=== PATIENT | female | born 1950 | race Caucasian/White ===

== ENCOUNTER → 2018-03-05 | Outpatient (CLI) | payer MEDICARE, OTHER ==
[~2018-03-05] MED LIST: NITR-105 PO
[2018-03-05 09:33] LABS: PLATELET COUNT, AUTOMATED 290 K/uL (150-450)
[2018-03-05 09:49] LABS: LDL CHOLESTEROL 87 mg/dl
== END ==
LOC: LAB 09:07
PROVIDERS: ATTEND Obstetrics & Gynecology
DX: Z00.00 Encounter for general adult medical examination without abnormal findings (principal)
CPT/HCPCS: 36415; 82040; 82247; 82310; 82374; 82435; 82465; 82565; 82947; 83718; 84075; 84132; 84155; 84295; 84443; 84450; 84460; 84478; 84520; 85025

== ENCOUNTER → 2018-03-22 | Outpatient (CLI) | payer MEDICARE, OTHER ==
[~2018-03-22] MED LIST changes: +BEV100I IV; +ESTR42.59 VG; +HYDR12.556 PO
--- NOTE | 2018-03-22 08:43 | EKG ---
FACILITY: [facility] - [place] PATIENT NAME: EPHRAIM DE GUZMAN : [id number] MR: [id number] V: [id number] EXAM DATE: ORDERING PHYSICIAN: NELY HORTON TECHNOLOGIST: ELLYN Test Reason : PREOP-EYE LIDS Blood Pressure : / mmHG Vent. Rate : 059 BPM Atrial Rate : 059 BPM P-R Int : 144 ms QRS Dur : 096 ms QT Int : 446 ms P-R-T Axes : 021 -14 000 degrees QTc Int : 441 ms Sinus bradycardia Incomplete right bundle branch block Nonspecific T wave abnormality Abnormal ECG When compared with ECG of 05-JAN-2016 13:21, No significant change was found Confirmed by WILFRED HERNANDEZ ([id number]) on 03/23/2018 6:41:15 AM Referred By: CLIFFORD Confirmed By:WILFRED HERNANDEZ
== END ==
LOC: CARD 08:25
PROVIDERS: ATTEND Anesthesiology
DX: Z01.810 Encounter for preprocedural cardiovascular examination (principal); H02.102 Unspecified ectropion of right lower eyelid; H02.105 Unspecified ectropion of left lower eyelid; R94.31 Abnormal electrocardiogram [ECG] [EKG]
CPT/HCPCS: 93005

== ENCOUNTER → 2018-04-05 | Outpatient (CLI) | payer MEDICARE, OTHER ==
[~2018-04-05] MED LIST changes: +ATOR10TA65 PO; +GOLYTE PO; +MULT1CAP59 PO
--- NOTE | 2018-04-05 15:47 | RADIOLOGY IMAGING REPORT ---
FACILITY: [facility] [place] PATIENT NAME: EPHRAIM DE GUZMAN : [id number] MR: [id number] V: [id number] EXAM DATE: [id number] ORDERING PHYSICIAN: CAMILA MONTEZ TECHNOLOGIST: Anna Henry PROCEDURE:BILATERAL DIGITAL SCREENING MAMMOGRAM WITH CAD ASSISTED INTERPRETATION & 3D TOMOSYNTHESIS COMPARISON:Prior mammograms 03/20/17, 03/01/16, 02/16/15, 04/02/12. INDICATIONS:screening FINDINGS: Moderately dense heterogeneous fibroglandular tissue is seen throughout the breasts. The parenchymal pattern has remained stable allowing for difference in mammographic technique & patient positioning. There is no evidence of malignant appearing mass, malignant appearing calcifications or other secondary sign of malignancy in either breast. DIAGNOSTIC CATEGORY 1--NEGATIVE. RECOMMENDATIONS: ROUTINE MAMMOGRAM AND CLINICAL EVALUATION. IMPRESSION: BIRADS 1: Negative No significant abnormality is seen. Dictated by: Sofia Mackay M.D. on 04/05/2018 at 12:45 Transcribed by: PRAVEEN on 04/05/2018 at 13:03 Approved by: Sofia Mackay M.D. on 04/05/2018 at 15:45 [facility]
== END ==
LOC: MAMO 03:27
PROVIDERS: ATTEND Obstetrics & Gynecology
DX: Z12.31 Encounter for screening mammogram for malignant neoplasm of breast (principal)
CPT/HCPCS: 77063; 77067

== ENCOUNTER 2018-06-12 02:02 | Day surgery (SDC) | payer MEDICARE, OTHER ==
[~2018-06-12] VITALS: Ht 160 cm; Wt 61.7 kg
[~2018-06-12 02:02] MED LIST changes: +ACYC15OI TP; +BIOT250012 PO
[2018-06-12] MEDS ORDERED: LIDOCAINE/SOD BICARB 8.4% SYR ID ONE (06:30)
[2018-06-12] MEDS ORDERED: NORMOSOL R SOLN(*) 1000 ML BAG 1,000 ML IV PRN (06:30)
[2018-06-12 06:51] VITALS: BP 135/77
[2018-06-12] MEDS ORDERED: PROPOFOL EMUL(*) 10MG/ML 20 ML 40 ML ONE (07:14)
[2018-06-12] MEDS ORDERED: LIDOCAINE MPF 1% 5 ML VIAL ONE (07:14)
[2018-06-12 07:48] VITALS: BP 99/58
--- NOTE | 2018-06-12 07:56 | Short(Outpt) Discharge Summary ---
Discharge Summary Reason for Hosp/Final Diag: (1) Colon cancer screening Status: Chronic Hospital Course & Plan: Colonoscopy with polypectomy x2 completed without problems. Departure Discharge to: Home, Self Care Discharge Instructions Home Meds Active Scripts Acyclovir (ACYCLOVIR) 15 Gm Oint...g., 15 GM TP Q3-4H for 7 Days, #1 TUBE 1 Refill Prov:CAMILA MONTEZ MD 05/06/18 Peg/Electrolytes (GOLYTELY SOLUTION) 4,000 Ml Soln, 1 GAL PO ONCE, #1 GAL 0 Refills Prov:NELY BELL MD 04/08/18 Hydrochlorothiazide (HYDROCHLOROTHIAZIDE) 12.5 Mg Capsule, 1 TAB PO QDAY, #30 CAPSULE Prov:CAMILA MONTEZ MD 03/08/18 Reported Medications Biotin (BIOTIN) 2,500 Mcg Capsule, 5000 MCG PO, CAPSULE 06/04/18 Atorvastatin Calcium (ATORVASTATIN CALCIUM) 10 Mg Tablet, 1 TAB PO QDAY, TAB 04/08/18 Multivitamin (MULTIVITAMINS) 1 Each Capsule, 1 EACH PO, CAPSULE 04/08/18 Estradiol (ESTRACE) 42.5 Gm Cream.appl, 42.5 GM VG 03/08/18 Diet: Regular Activity: As Tolerated Special Instructions: Your colonoscopy was completed without any problems and your prep was excellent (Good Job!!). I remove 2 small polyps from your colon and they were sent to pathology. My office will call you in the next week or so and let you know what the polyps are and when your next colonoscopy should be (either 5 or 10 years) depending on the pathology results. NELY BELL MD Jun 12, 2018 07:56
[2018-06-12 08:00] VITALS: BP 107/72
[2018-06-12 08:30] VITALS: BP 139/80
[2018-06-12 08:35] VITALS: BP 137/99
== END 2018-06-12 08:45 | disposition home or self-care (01) ==
LOC: OR 02:02
PROVIDERS: ATTEND Surgery
DX: Z12.11 Encounter for screening for malignant neoplasm of colon (principal); D12.3 Benign neoplasm of transverse colon
CPT/HCPCS: 00811; 45380; 88305; J2001; J2704

== ENCOUNTER → 2019-02-04 | Outpatient (CLI) | payer MEDICARE, OTHER ==
[~2019-02-04] MED LIST changes: +AZIT-1 PO; +GUAI120L3 PO; +PRED20TA6 PO
--- NOTE | 2019-02-04 11:52 | RADIOLOGY IMAGING REPORT ---
FACILITY: [facility] - [place] PATIENT NAME: Lor Hoover : 1950 MR: [id number] V: [id number] EXAM DATE: ORDERING PHYSICIAN: VIVIENNE TIRADO TECHNOLOGIST: Location: [facility] Patient: Lor Hoover : 1950 Visit/Account:[id number] Date of Sevice: 02/04/2019 EXAMINATION: PA and Lateral Chest 02/04/2019 10:51 AM HISTORY: Cough x2 months COMPARISON: None FINDINGS: Cardiomediastinal contours: Normal heart size. Mild atherosclerotic aortic calcifications. Lungs and pleura: No pulmonary infiltrate or consolidation. Density of pericardial fat or scarring a long the right cardiophrenic angle. Pleural spaces are clear. Bones/soft tissues: Degenerative spurring in the spine with scoliotic curvature and accentuation of t horacic kyphosis. No acute bony finding. IMPRESSION: No acute cardiopulmonary abnormality. Report Dictated By: Chris Thompson MD at 02/04/2019 11:48 AM Report E-Signed By: Chris Thompson MD at 02/04/2019 11:50 AM WSN:[email or web address]
== END ==
LOC: RAD 10:43
PROVIDERS: ATTEND Nurse Practitioner Primary Care
DX: I70.0 Atherosclerosis of aorta (principal); R91.8 Other nonspecific abnormal finding of lung field; M47.894 Other spondylosis, thoracic region
CPT/HCPCS: 71046

== ENCOUNTER → 2019-02-25 | Outpatient (CLI) | payer MEDICARE, OTHER ==
[2019-02-25 09:49] LABS: LDL CHOLESTEROL 81 mg/dl
== END ==
LOC: LAB 08:08
PROVIDERS: ATTEND Obstetrics & Gynecology
DX: Z00.00 Encounter for general adult medical examination without abnormal findings (principal); I10 Essential (primary) hypertension; E78.5 Hyperlipidemia, unspecified
CPT/HCPCS: 36415; 82040; 82247; 82306; 82310; 82374; 82435; 82465; 82565; 82947; 83718; 84075; 84132; 84155; 84295; 84443; 84450; 84460; 84478; 84520; 85027

== ENCOUNTER → 2019-04-25 | Outpatient (CLI) | payer MEDICARE, OTHER ==
--- NOTE | 2019-04-28 09:34 | RADIOLOGY IMAGING REPORT ---
FACILITY: [facility] - [place] PATIENT NAME: EPHRAIM DE GUZMAN : [id number] MR: [id number] V: [id number] EXAM DATE: ORDERING PHYSICIAN: CAMILA MONTEZ TECHNOLOGIST: Maritza Rich PROCEDURE: BILATERAL DIGITAL SCREENING MAMMOGRAM WITH CAD ASSISTED INTERPRETATION & 3D TOMOSYNTHESIS REASON FOR STUDY: Screening. FAMILY HISTORY OF BREAST CANCER: Unknown (patient is adopted). BREAST PROCEDURES/TREATMENTS: 5 breast aspirations on Right and 1 on the Left and 2 benign surgical biopsies on the Left. COMPARISON: 04/05/18, 03/20/17, 03/01/16, 02/16/15. VIEWS OBTAINED: 2D & 3D full filed CC & MLO. BREAST DENSITY: The breasts are heterogeneously dense which can obscure small masses. MAMMOGRAM FINDINGS: The parenchymal pattern has remained stable allowing for difference in mammographic technique & patient positioning. IMPRESSION: BIRADS 1: Negative. DIAGNOSTIC CATEGORY 1--NEGATIVE. RECOMMENDATIONS: ROUTINE MAMMOGRAM AND CLINICAL EVALUATION. Dictated by: Sofia Mackay M.D. on 04/25/2019 at 10:37 Transcribed by: PRAVEEN on 04/28/2019 at 8:15 Approved by: Sofia Mackay M.D. on 04/28/2019 at 9:33 [facility]
== END ==
LOC: MAMO 01:02
PROVIDERS: ATTEND Obstetrics & Gynecology
DX: Z12.31 Encounter for screening mammogram for malignant neoplasm of breast (principal)
CPT/HCPCS: 77063; 77067